=== PATIENT | female | born 1960 | race Two or more races ===

== ENCOUNTER 2018-07-25 07:49 | Outpatient (CLI) | payer OTHER | END 2018-07-25 07:56 | disposition home or self-care (01) | LOC: MAMO-SONO 07:49 | DX: Z12.31 Encounter for screening mammogram for malignant neoplasm of breast (principal); N60.11 Diffuse cystic mastopathy of right breast ==

== ENCOUNTER 2020-05-20 09:06 | Outpatient (CLI) | payer OTHER | END 2020-05-20 09:16 | disposition home or self-care (01) | LOC: MAMO-SONO 09:06 | PROVIDERS: ATTEND Obstetrics & Gynecology | DX: Z12.31 Encounter for screening mammogram for malignant neoplasm of breast (principal); N60.11 Diffuse cystic mastopathy of right breast ==

== ENCOUNTER 2020-09-08 12:03 | Outpatient (CLI) | payer OTHER | END 2020-09-08 12:13 | disposition home or self-care (01) | LOC: NUCLEAR 12:03 | PROVIDERS: ATTEND Orthopaedic Surgery | DX: M81.0 Age-related osteoporosis without current pathological fracture (principal) ==

== ENCOUNTER 2021-08-12 08:09 | Outpatient (CLI) | payer OTHER | END 2021-08-12 08:18 | disposition home or self-care (01) | LOC: MAMO-SONO 08:09 | PROVIDERS: ATTEND Obstetrics & Gynecology | DX: R92.1 Mammographic calcification found on diagnostic imaging of breast (principal); Z12.31 Encounter for screening mammogram for malignant neoplasm of breast; N60.11 Diffuse cystic mastopathy of right breast ==

== ENCOUNTER 2023-02-03 02:16 | Emergency (ER) | payer OTHER ==
[~2023-02-03] VITALS: Ht 162.6 cm; Wt 62.1 kg
[2023-02-03] MEDS ORDERED: AMOX-CLAV 875-1 EACH (02:20)
[2023-02-03] MEDS ORDERED: TAMS0.4C PO (06:55)
[2023-02-03] MEDS ORDERED: CIPRO500 MG PO (06:55)
[2023-02-03] MEDS ORDERED: KETO10TA2 PO (06:55)
== END 2023-02-03 07:11 | disposition home or self-care (01) ==
LOC: ER 02:16
DX: N23 Unspecified renal colic (principal); Z88.2 Allergy status to sulfonamides

== ENCOUNTER 2024-09-26 10:09 | Outpatient (CLI) | payer OTHER ==
[~2024-09-26 10:09] MED LIST: AMOX-CLAV 875-1 EACH; CIPRO500 MG PO; KETO10TA2 PO; TAMS0.4C PO
== END 2024-09-26 10:13 | disposition home or self-care (01) ==
LOC: RAD 10:09
PROVIDERS: ATTEND Orthopaedic Surgery
DX: M79.651 Pain in right thigh (principal); M25.561 Pain in right knee

== ENCOUNTER 2024-10-01 13:07 | Outpatient (CLI) | payer OTHER | END 2024-10-01 13:16 | disposition home or self-care (01) | LOC: MRI 13:07 | PROVIDERS: ATTEND Physical Medicine & Rehabilitation | DX: M54.50 Low back pain, unspecified (principal); M54.16 Radiculopathy, lumbar region | CPT/HCPCS: 72148 ==

== ENCOUNTER 2025-01-03 11:30 | Outpatient (CLI) | payer OTHER | END 2025-01-03 11:39 | disposition home or self-care (01) | LOC: RAD 11:30 | DX: M54.51 Vertebrogenic low back pain (principal) ==

== ENCOUNTER 2025-01-25 09:31 | Outpatient (CLI) | payer OTHER | END 2025-01-25 09:34 | disposition home or self-care (01) | LOC: MRI 09:31 | DX: M50.123 Cervical disc disorder at C6-C7 level with radiculopathy (principal); M50.122 Cervical disc disorder at C5-C6 level with radiculopathy; M48.02 Spinal stenosis, cervical region | CPT/HCPCS: 72141 ==